=== PATIENT | female | born 1965 | race Two or more races ===

== ENCOUNTER 2020-05-24 10:16 | Outpatient (CLI) | payer MEDICAID ==
[2020-05-24] MEDS ORDERED: ATORVASTATIN CA20 MG ORAL (13:47)
[2020-05-24] MEDS ORDERED: METFORMIN HCL500 M1 ORAL (13:47)
[2020-05-24 13:48] VITALS: BP 124/75
--- NOTE | 2020-05-24 17:29 | Consultation ---
DATE OF CONSULTATION: 05/24/2020 GASTROENTEROLOGY CONSULTATION CONSULTING PHYSICIAN: Jerrell Mac MD CHIEF COMPLAINT: Referral for ERCP. HISTORY OF PRESENT ILLNESS: This is a very pleasant 54-year-old female, who had an ERCP. apparently, she had a stricture in the distal common bile duct, requiring biopsy and stenting. According to the family, so far there was no diagnosis of cancer, but she was referred for repeat ERCP and stent exchange. PAST MEDICAL HISTORY: 1. Biliary stricture. 2. Diabetes. PAST SURGICAL HISTORY: x2, hernia surgery, hysterectomy. MEDICATIONS: Please see medication reconciliation list. FAMILY HISTORY: No family history of GI malignancies. SOCIAL HISTORY: The patient denies any tobacco, alcohol, or IV drug abuse. ALLERGIES: No known allergies. PHYSICAL EXAMINATION: VITAL SIGNS: Temperature 97, blood pressure 124/75, pulse 71, respirations 20. HEENT: Normocephalic and atraumatic. Sclerae are anicteric. NECK: Supple. No evidence of obvious lymphadenopathy. CARDIOVASCULAR: Regular rate and rhythm. Plus S1, S2. LUNGS: Clear to auscultation bilaterally. ABDOMEN: Positive bowel sounds. Soft, nontender. No rebound. No guarding. No peritoneal sign. EXTREMITIES: No cyanosis, no clubbing, no edema. ASSESSMENT AND PLAN: This is a 54-year-old female with biliary stricture and stenting, needs a stent exchange, biopsy, and possible dilation. The patient needs to have a repeat ERCP. We will schedule her as soon as authorization is obtained. Jerrell Mac M.D. DR: RAPHAEL JOB#: [id number] CC:
--- NOTE | 2020-05-25 18:59 | Consultation ---
DATE OF CONSULTATION: 05/24/2020 ADDENDUM Our recommendation was for the ERCP, but review of chart showed that the patient already had a metallic stent placement in the distal common bile duct and the request for consultation was for endoscopic ultrasound, so we are going to try to schedule the patient for EUS. Jerrell Mac M.D. DR: RAPHAEL JOB#: [id number] CC:
== END 2020-05-24 12:16 | disposition home or self-care (01) ==
LOC: PAN 10:16
DX: K83.1 Obstruction of bile duct (principal); Z90.710 Acquired absence of both cervix and uterus; E11.9 Type 2 diabetes mellitus without complications
CPT/HCPCS: 99203